=== PATIENT | male | born 1990 | race Caucasian/White ===

== ENCOUNTER 2017-03-02 18:07 | Emergency (ER) | payer SELFPAY ==
[2017-03-02 18:21] VITALS: BP 124/76; PULSE 87; RESP 16; TEMP 98.1; O2SAT 98
--- NOTE | 2017-03-02 19:23 | EDPHY ---
H & P Time Seen by Provider: 03/02/17 18:59 HPI/ROS: CHIEF COMPLAINT: Left toe pain HISTORY OF PRESENT ILLNESS: 26-year-old male presents to the emergency department complaining of toe pain on his left foot. Patient reports he kicked a wall as he was going around a corner earlier today. He denies numbness or tingling to his toes, no previous injury to this foot. Smoking Status: Current every day smoker Physical Exam: GEN: Awake, alert, oriented, no acute distress RESP: nl resp effort MSK: Left foot with no swelling, tenderness to 2nd 3rd and 4th toe at MTP, PIP and DIP joint. Ecchymosis noted to 2nd toe. Cap refill less than 2 seconds, sensation intact to light touch, no tenderness to base of 5th metatarsal SKIN: No break in skin Constitutional: Initial Vital Signs Temperature (C) 36.7 C 03/02/17 18:15 Heart Rate 87 03/02/17 18:15 Respiratory Rate 16 03/02/17 18:15 Blood Pressure 124/76 H 03/02/17 18:15 O2 Sat (%) 98 03/02/17 18:15 O2 Delivery Mode Room Air Allergies/Adverse Reactions: No Known Allergies Allergy (Verified 03/02/17 18:18) Home Medications: Medication Instructions Recorded NK [No Known Home Meds] 03/02/17 MDM/Departure - MDM Imaging Results: Imaging Impressions Toe X-Ray 03/02/17 18:21 Impression: No evidence for acute fracture. Imaging: I viewed and interpreted images myself - Depart Disposition: Home, Routine, Self-Care Clinical Impression: Toe sprain Qualifiers: Encounter type: initial encounter Qualified Code(s): S93.509A - Unspecified sprain of unspecified toe(s), initial encounter Condition: Good Instructions: Foot Sprain (ED) Additional Instructions: Rest, ice, elevate, take 600 mg of ibuprofen every 8 hours with food for 3-5 days. Walk on your heel. Follow up with orthopedist for symptoms that are not improving in the next 7-10 days, return to the emergency department for worsening symptoms, new symptoms or concerns. Referrals: Joe Eagle MD [Medical Doctor] - As per Instructions (Orthopedist on- call)
== END 2017-03-02 19:33 | disposition home or self-care (01) ==
DX: S93.505A Unspecified sprain of left lesser toe(s), initial encounter (principal); F17.200 Nicotine dependence, unspecified, uncomplicated; W22.8XXA Striking against or struck by other objects, initial encounter
CPT/HCPCS: L3260